=== PATIENT | female | born 1990 | race African-American/Black ===

== ENCOUNTER → 2017-12-27 | Outpatient (REF) | payer OTHER, SELFPAY ==
[2017-12-27 17:56] LABS: BASO # 0.1 10^3/uL (0.0-0.2); EOS # 0.3 10^3/uL (0.0-0.50); EOS % 3.5 % (0.0-3.0); HEMATOCRIT 39.8 % (36.0-47.0); HEMOGLOBIN 13.8 g/dl (12.0-15.5); IMMATURE GRANULOCYTE % 0.3 % (0-3.0); LYMPH # 2.1 10^3/uL (1.5-6.5); LYMPH % 26.9 % (24.0-44.0); MEAN CORPUSCULAR HEMOGLOBIN 29.7 pg (27.0-33.0); MEAN CORPUSCULAR HGB CONC 34.7 g/dl (32.0-36.5); MEAN CORPUSCULAR VOLUME 85.8 fl (80.0-96.0); MONO # 0.6 10^3/uL (0.0-0.8); MONO % 7.8 % (0.0-5.0); NEUTROPHILS # 4.8 10^3/uL (1.8-7.7); NEUTROPHILS % 60.5 % (36.0-66.0); PLATELET COUNT, AUTOMATED 369 10^3/uL (150-450); RED BLOOD COUNT 4.64 10^6/uL (4.00-5.40); RED CELL DISTRIBUTION WIDTH 12.9 % (11.5-14.5); WHITE BLOOD COUNT 7.9 10^3/uL (4.0-10.0)
[2017-12-27 18:39] LABS: ALBUMIN 3.7 GM/DL (3.2-5.2); ALBUMIN/GLOBULIN RATIO 1.03 (1.00-1.93); ALKALINE PHOSPHATASE 100 U/L (45-117); ALT/SGPT 25 U/L (12-78); ANION GAP 7 MEQ/L (8-16); AST/SGOT 14 U/L (7-37); BILIRUBIN,TOTAL 0.2 MG/DL (0.2-1.0); BLOOD UREA NITROGEN 7 MG/DL (7-18); CALCIUM LEVEL 9.2 MG/DL (8.5-10.1); CARBON DIOXIDE LEVEL 23 MEQ/L (21-32); CHLORIDE LEVEL 107 MEQ/L (98-107); CHOLESTEROL LEVEL 188 MG/DL (<200); CREATININE FOR GFR 0.83 MG/DL (0.55-1.30); GLOMERULAR FILTRATION RATE > 60.0 (>60); GLUCOSE, FASTING 363 MG/DL (70-100); HDL CHOLESTEROL 50 MG/DL (>40); LDL CHOLESTEROL 123.4 MG/DL (<100); NON-HDL-C 138 MG/DL; POTASSIUM SERUM 4.4 MEQ/L (3.5-5.1); SODIUM LEVEL 137 MEQ/L (136-145); THYROID STIMULATING HORMONE 0.544 uIU/ML (0.358-3.740); TOTAL PROTEIN 7.3 GM/DL (6.4-8.2); TRIGLYCERIDES LEVEL 73 MG/DL (<150)
[2017-12-27 19:40] LABS: CREATININE, URINE 79.9 MG/DL; MAU/CREAT RATIO 354.1 MCG/MG (0.0-30.0)
[2017-12-27 20:15] LABS: ESTIMATED AVERAGE GLUCOSE 283 MG/DL (60-110); HEMOGLOBIN A1c 11.5 %
[2017-12-28 12:08] LABS: HEPATITIS C VIRUS ABY INDEX 6.9 INDEX (<0.8)
[2017-12-31 00:07] LABS: HCV RNA NAA QUALITATIVE Negative (Negative)
== END ==
LOC: M LAB REF 16:27
DX: E11.9 Type 2 diabetes mellitus without complications (principal)
CPT/HCPCS: 84443

== ENCOUNTER 2018-02-11 13:02 | Inpatient (IN) | payer MEDICAID, OTHER ==
[2018-02-11] MEDS: NICOTINE 21MG/24HR 1 EA TRANSDERMAL TD (09:00)
[2018-02-11 12:04] LABS: BASO # 0.1 10^3/uL (0.0-0.2); BASO % 0.8 % (0.0-1.0); EOS # 0.2 10^3/uL (0.0-0.50); EOS % 1.8 % (0.0-3.0); HEMATOCRIT 41.3 % (36.0-47.0); HEMOGLOBIN 13.9 g/dl (12.0-15.5); IMMATURE GRANULOCYTE % 0.1 % (0-3.0); LYMPH # 1.6 10^3/uL (1.5-6.5); LYMPH % 18.7 % (24.0-44.0); MEAN CORPUSCULAR HEMOGLOBIN 29.2 pg (27.0-33.0); MEAN CORPUSCULAR HGB CONC 33.7 g/dl (32.0-36.5); MEAN CORPUSCULAR VOLUME 86.8 fl (80.0-96.0); MONO # 0.7 10^3/uL (0.0-0.8); MONO % 8.5 % (0.0-5.0); NEUTROPHILS # 5.9 10^3/uL (1.8-7.7); NEUTROPHILS % 70.1 % (36.0-66.0); PLATELET COUNT, AUTOMATED 333 10^3/uL (150-450); RED BLOOD COUNT 4.76 10^6/uL (4.00-5.40); RED CELL DISTRIBUTION WIDTH 12.9 % (11.5-14.5); WHITE BLOOD COUNT 8.4 10^3/uL (4.0-10.0)
[2018-02-11] MEDS: ONDANSETRON 4MG/2ML VIAL (J2405) IV (12:05)
[2018-02-11 12:16] LABS: CONTROL LINE HCG INT CTR LINE PRESENT; HCG, SERUM QUALITATIVE NEGATIVE (NEGATIVE)
[2018-02-11 12:30] LABS: ACETAMINOPHEN LEVEL < 2.0 UG/ML (10.0-30.0); ALBUMIN 3.7 GM/DL (3.2-5.2); ALBUMIN/GLOBULIN RATIO 1.03 (1.00-1.93); ALKALINE PHOSPHATASE 86 U/L (45-117); ALT/SGPT 27 U/L (12-78); ANION GAP 11 MEQ/L (8-16); AST/SGOT 18 U/L (7-37); BILIRUBIN,DIRECT 0.1 MG/DL (0.0-0.2); BILIRUBIN,TOTAL 0.4 MG/DL (0.2-1.0); BLOOD UREA NITROGEN 12 MG/DL (7-18); CALCIUM LEVEL 8.8 MG/DL (8.5-10.1); CARBON DIOXIDE LEVEL 21 MEQ/L (21-32); CHLORIDE LEVEL 106 MEQ/L (98-107); CPK CREATINE PHOSPHOKINASE 76 U/L (26-192); ETHYL ALCOHOL (ETHANOL) < 0.003 % (0.000-0.010); GLOMERULAR FILTRATION RATE > 60.0 (>60); GLUCOSE, FASTING 359 MG/DL (70-100); POTASSIUM SERUM 4.1 MEQ/L (3.5-5.1); SALICYLATE LEVEL 2.7 MG/DL (5.0-30.0); SODIUM LEVEL 138 MEQ/L (136-145); TOTAL PROTEIN 7.3 GM/DL (6.4-8.2)
[2018-02-11 12:30] LABS: BEDSIDE GLUCOSE 367 MG/DL (70-105)
[2018-02-11] MEDS: CHARCOAL ACTIVATED LIQUID 25 GM/120 ML BTL PO (13:00)
[~2018-02-11 13:02] MED LIST: ONDANSETRON 4MG/2ML VIAL (J2405) As Ordered
[2018-02-11 13:20] LABS: AMPHETAMINES LEVEL URINE NEGATIVE (NEGATIVE); BARBITURATES URINE NEGATIVE (NEGATIVE); BENZODIAZEPINES URINE NEGATIVE (NEGATIVE); CANNABINOIDS URINE POSITIVE (NEGATIVE); COCAINE METABOLITE URINE POSITIVE (NEGATIVE); METHADONE URINE NEGATIVE (NEGATIVE); OPIATES URINE NEGATIVE (NEGATIVE); PHENCYCLIDINE URINE NEGATIVE (NEGATIVE)
[2018-02-11] MEDS ORDERED: ACETAMINOPHEN TAB 650MG DOSE (2X325MG) PO (19:15)
[2018-02-11] MEDS ORDERED: MOM 30ML SUSPENSION UDC PO (19:15)
[2018-02-11] MEDS ORDERED: MAALOX 30 ML SUSP *UDC PO (19:15)
[2018-02-12] MEDS: NICOTINE 21MG/24HR 1 EA TRANSDERMAL TD (10:09)
[2018-02-13] MEDS: LISINOPRIL 10 MG TAB PO ×2 (08:12→10:35)
[2018-02-13] MEDS: FLUoxetine 20 MG CAP PO (08:12)
[2018-02-13] MEDS: NICOTINE 21MG/24HR 1 EA TRANSDERMAL TD (08:13)
[2018-02-13] MEDS: metFORMIN (GLUCOPHAGE) 1000 MG TABLET PO ×2 (10:35→21:00)
[2018-02-13 11:43] LABS: HEMATOCRIT 40.6 % (36.0-47.0); HEMOGLOBIN 13.8 g/dl (12.0-15.5); MEAN CORPUSCULAR HEMOGLOBIN 29.4 pg (27.0-33.0); MEAN CORPUSCULAR VOLUME 86.4 fl (80.0-96.0); PLATELET COUNT, AUTOMATED 344 10^3/uL (150-450); RED CELL DISTRIBUTION WIDTH 12.8 % (11.5-14.5); WHITE BLOOD COUNT 9.4 10^3/uL (4.0-10.0)
[2018-02-13] MEDS: glyBURIDE 2.5 MG TAB PO (11:54)
[2018-02-13 12:05] LABS: ALBUMIN 3.5 GM/DL (3.2-5.2); ALBUMIN/GLOBULIN RATIO 0.95 (1.00-1.93); ALKALINE PHOSPHATASE 84 U/L (45-117); ALT/SGPT 23 U/L (12-78); ANION GAP 10 MEQ/L (8-16); AST/SGOT 11 U/L (7-37); BILIRUBIN,TOTAL 0.2 MG/DL (0.2-1.0); BLOOD UREA NITROGEN 11 MG/DL (7-18); CALCIUM LEVEL 8.8 MG/DL (8.5-10.1); CARBON DIOXIDE LEVEL 22 MEQ/L (21-32); CHLORIDE LEVEL 106 MEQ/L (98-107); CREATININE FOR GFR 1.07 MG/DL (0.55-1.30); GLOMERULAR FILTRATION RATE > 60.0 (>60); GLUCOSE, FASTING 324 MG/DL (70-100); POTASSIUM SERUM 4.3 MEQ/L (3.5-5.1); SODIUM LEVEL 138 MEQ/L (136-145); TOTAL PROTEIN 7.2 GM/DL (6.4-8.2)
[2018-02-13] MEDS: traZODone 50 MG TAB PO (20:19)
[2018-02-13 20:24] LABS: BEDSIDE GLUCOSE 279 MG/DL (70-105)
[2018-02-14 06:46] LABS: BEDSIDE GLUCOSE 305 MG/DL (70-105)
[2018-02-14] MEDS: NICOTINE 21MG/24HR 1 EA TRANSDERMAL TD (09:00)
[2018-02-14] MEDS: metFORMIN (GLUCOPHAGE) 1000 MG TABLET PO (10:04)
[2018-02-14] MEDS: LISINOPRIL 10 MG TAB PO (10:04)
[2018-02-14] MEDS: FLUoxetine 20 MG CAP PO (10:04)
[2018-02-14] MEDS: glyBURIDE 2.5 MG TAB PO (10:05)
== END 2018-02-14 10:15 | disposition home or self-care (01) | DRG 885 ==
LOC: M ED 13:02 → M ED INP 19:03 → M PSY 21:35
DX: F33.2 Major depressive disorder, recurrent severe without psychotic features (principal); F40.10 Social phobia, unspecified; Z91.5 Personal history of self-harm; I10 Essential (primary) hypertension; Z79.84 Long term (current) use of oral hypoglycemic drugs; E11.9 Type 2 diabetes mellitus without complications; F17.210 Nicotine dependence, cigarettes, uncomplicated; A60.09 Herpesviral infection of other urogenital tract; Z79.899 Other long term (current) drug therapy

== ENCOUNTER 2018-06-06 16:46 | Emergency (ER) | payer MEDICAID, OTHER ==
[2018-06-06] MEDS: NAPROXEN 250 MG TAB PO (17:44)
[2018-06-06] MEDS: ACETAMINOPHEN 325 MG TAB PO (18:45)
== END 2018-06-06 18:55 | disposition home or self-care (01) ==
LOC: M ED 16:46
DX: S20.211A Contusion of right front wall of thorax, initial encounter (principal); S40.011A Contusion of right shoulder, initial encounter; Y04.0XXA Assault by unarmed brawl or fight, initial encounter; Y92.89 Other specified places as the place of occurrence of the external cause
CPT/HCPCS: 71046

== ENCOUNTER → 2019-02-28 | Outpatient (REF) | payer OTHER, MEDICAID ==
[~2019-02-28] MED LIST changes: +BACT800T5 PO; +FLUO20CA19 PO; +GLYB25TA PO; +IBUP1TAB7 PO; +INSUDET SC; +INSUH10VL SC; +INSUHUMDS SC; +LISI10TA4 PO; +METF10004 PO; -ONDANSETRON 4MG/2ML VIAL (J2405) As Ordered; +PARO20TA3; +PARO30TA PO; +PERC5TAB12 PO
[2019-02-28 15:08] LABS: BASO # 0.1 10^3/uL (0.0-0.2); BASO % 1.1 % (0.0-1.0); EOS # 0.1 10^3/uL (0.0-0.50); EOS % 2.2 % (0.0-3.0); HEMATOCRIT 41.6 % (36.0-47.0); HEMOGLOBIN 14.1 g/dl (12.0-15.5); LYMPH # 2.7 10^3/uL (1.5-6.5); LYMPH % 43.8 % (24.0-44.0); MEAN CORPUSCULAR HEMOGLOBIN 30.1 pg (27.0-33.0); MEAN CORPUSCULAR HGB CONC 33.9 g/dl (32.0-36.5); MEAN CORPUSCULAR VOLUME 88.7 fl (80.0-96.0); MONO # 0.7 10^3/uL (0.0-0.8); MONO % 10.7 % (0.0-5.0); NEUTROPHILS # 2.6 10^3/uL (1.8-7.7); NEUTROPHILS % 41.9 % (36.0-66.0); PLATELET COUNT, AUTOMATED 297 10^3/uL (150-450); RED BLOOD COUNT 4.69 10^6/uL (4.00-5.40); WHITE BLOOD COUNT 6.3 10^3/uL (4.0-10.0)
[2019-02-28 15:40] LABS: HEMOGLOBIN A1c 11.6 %
[2019-02-28 15:56] LABS: ALBUMIN 3.6 GM/DL (3.2-5.2); ALT/SGPT 24 U/L (12-78); BILIRUBIN,TOTAL 0.4 MG/DL (0.2-1.0); BLOOD UREA NITROGEN 11 MG/DL (7-18); CALCIUM LEVEL 9.3 MG/DL (8.5-10.1); CARBON DIOXIDE LEVEL 24 MEQ/L (21-32); CHLORIDE LEVEL 108 MEQ/L (98-107); CHOLESTEROL LEVEL 212 MG/DL (<200); CHOLESTEROL RISK RATIO 3.593 (<5); CREATININE FOR GFR 0.73 MG/DL (0.55-1.30); FREE T4 1.13 NG/DL (0.76-1.46); GLOMERULAR FILTRATION RATE > 60.0 (>60); GLUCOSE, FASTING 252 MG/DL (70-100); HDL CHOLESTEROL 59 MG/DL (>40); LDL CHOLESTEROL 139 MG/DL (<100); NON-HDL-C 153 MG/DL; POTASSIUM SERUM 4.6 MEQ/L (3.5-5.1); SODIUM LEVEL 140 MEQ/L (136-145); THYROID STIMULATING HORMONE 0.644 uIU/ML (0.358-3.740); TOTAL 25(OH) VITAMIN D 22.7 NG/ML (30.0-100.0); TOTAL PROTEIN 7.2 GM/DL (6.4-8.2); TRIGLYCERIDES LEVEL 68 MG/DL (<150)
[2019-03-02 00:07] LABS: Lyme Disease IgG/IgM Antibodie <0.91 ISR (0.00-0.90); Lyme Disease IgM Ab Quantitati <0.80 index (0.00-0.79)
== END ==
LOC: M LAB REF 13:31
PROVIDERS: ATTEND Family Medicine
DX: Z13.228 Encounter for screening for other metabolic disorders (principal); E11.9 Type 2 diabetes mellitus without complications

== ENCOUNTER → 2019-02-28 | Outpatient (CLI) | payer OTHER, MEDICAID | LOC: M LAB 13:01 | PROVIDERS: ATTEND Family Medicine | DX: E11.9 Type 2 diabetes mellitus without complications (principal); Z13.228 Encounter for screening for other metabolic disorders ==

== ENCOUNTER → 2019-10-03 | Outpatient (REF) | payer OTHER, MEDICAID ==
[~2019-10-03] MED LIST changes: -FLUO20CA19 PO; +FLUO20CA22 PO
[2019-10-03 17:13] LABS: BASO # 0.1 10^3/uL (0.0-0.2); BASO % 0.8 % (0.0-1.0); EOS # 0.2 10^3/uL (0.0-0.5); HEMATOCRIT 39.4 % (36.0-47.0); HEMOGLOBIN 13.4 g/dl (12.0-15.5); LYMPH # 2.2 10^3/uL (1.5-5.0); LYMPH % 34.1 % (24.0-44.0); MEAN CORPUSCULAR HEMOGLOBIN 29.7 pg (27.0-33.0); MEAN CORPUSCULAR VOLUME 87.4 fl (80.0-96.0); MONO # 0.6 10^3/uL (0.0-0.8); MONO % 9.8 % (0.0-5.0); NEUTROPHILS # 3.4 10^3/uL (1.5-8.5); PLATELET COUNT, AUTOMATED 360 10^3/uL (150-450); RED BLOOD COUNT 4.51 10^6/uL (4.00-5.40); WHITE BLOOD COUNT 6.4 10^3/uL (4.0-10.0)
[2019-10-03 17:33] LABS: HEMOGLOBIN A1c 12.1 %
[2019-10-03 18:08] LABS: ALBUMIN 3.3 GM/DL (3.2-5.2); ALT/SGPT 22 U/L (12-78); BILIRUBIN,TOTAL 0.3 MG/DL (0.2-1.0); BLOOD UREA NITROGEN 11 MG/DL (7-18); CALCIUM LEVEL 8.9 MG/DL (8.5-10.1); CARBON DIOXIDE LEVEL 28 MEQ/L (21-32); CHLORIDE LEVEL 105 MEQ/L (98-107); CHOLESTEROL LEVEL 228 MG/DL (<200); CHOLESTEROL RISK RATIO 4.145 (<5); CREATININE FOR GFR 0.86 MG/DL (0.55-1.30); GLOMERULAR FILTRATION RATE > 60.0 (>60); GLUCOSE, FASTING 307 MG/DL (70-100); HDL CHOLESTEROL 55 MG/DL (>40); LDL CHOLESTEROL 150 MG/DL (<100); NON-HDL-C 173 MG/DL; SODIUM LEVEL 137 MEQ/L (136-145); THYROID STIMULATING HORMONE 0.894 uIU/ML (0.358-3.740); TOTAL PROTEIN 6.5 GM/DL (6.4-8.2); TRIGLYCERIDES LEVEL 117 MG/DL (<150)
== END ==
LOC: M LAB REF 16:39
PROVIDERS: ATTEND Family Medicine
DX: E11.9 Type 2 diabetes mellitus without complications (principal)

== ENCOUNTER → 2019-10-10 | Outpatient (REF) | payer OTHER, MEDICAID | LOC: M LAB REF 17:58 | PROVIDERS: ATTEND Family Medicine | DX: E11.9 Type 2 diabetes mellitus without complications (principal) ==

== ENCOUNTER 2020-06-03 18:11 | Emergency (ER) | payer MEDICAID, OTHER ==
[~2020-06-03] VITALS: Ht 170.2 cm; Wt 95.1 kg
[~2020-06-03 18:11] MED LIST changes: -PARO30TA PO; +PARO30TA65 PO
[2020-06-03 19:19] VITALS: BP 152/98
[2020-06-03] MEDS ORDERED: NAPROXEN 250 MG TAB PO ONE (19:45)
[2020-06-03] MEDS ORDERED: MAGIC MOUTHWASH SUSPENSION BTL SS STA (19:45)
[2020-06-03] MEDS ORDERED: NAPR-837 PO (20:00)
[2020-06-03] MEDS ORDERED: MAGICMW SSP (20:00)
== END 2020-06-03 20:09 | disposition home or self-care (01) ==
LOC: M ED 18:11
DX: R07.0 Pain in throat (principal); E11.9 Type 2 diabetes mellitus without complications

== ENCOUNTER 2020-06-24 12:39 | Emergency (ER) | payer OTHER ==
[~2020-06-24] VITALS: Ht 172.7 cm; Wt 93.5 kg
[~2020-06-24 12:39] MED LIST changes: +MAGICMW SSP; +NAPR-837 PO
--- NOTE | 2020-06-24 14:25 | REP ---
INDICATION: chest tightness. COMPARISON: June 06, 2018.. TECHNIQUE: Portable AP radiograph. FINDINGS: The lungs are well inflated and clear. The pleural angles are sharp. Heart size is normal. Pulmonary vasculature is not increased. No bony abnormality is seen. IMPRESSION: Negative portable chest x-ray. <Electronically signed by Heri Muñoz > 06/24/20 [id number]
[2020-06-24 15:33] LABS: BASO # 0.1 10^3/uL (0.0-0.2); BASO % 0.8 % (0.0-1.0); EOS # 0.2 10^3/uL (0.0-0.5); HEMATOCRIT 38.9 % (36.0-47.0); LYMPH # 2.8 10^3/uL (1.5-5.0); LYMPH % 37.2 % (24.0-44.0); MEAN CORPUSCULAR HGB CONC 33.4 g/dl (32.0-36.5); MEAN CORPUSCULAR VOLUME 86.6 fl (80.0-96.0); MONO # 0.7 10^3/uL (0.0-0.8); MONO % 9.4 % (0.0-5.0); NEUTROPHILS # 3.7 10^3/uL (1.5-8.5); NEUTROPHILS % 49.3 % (36.0-66.0); PLATELET COUNT, AUTOMATED 305 10^3/uL (150-450); RED BLOOD COUNT 4.49 10^6/uL (4.00-5.40); WHITE BLOOD COUNT 7.4 10^3/uL (4.0-10.0)
[2020-06-24 16:00] VITALS: BP 149/79
--- NOTE | 2020-06-24 16:52 | ECGEPIP ---
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
--- NOTE | 2020-06-28 08:58 | ED PDOC ---
Post-Departure Follow-Up Called patient to update on negative COVID-19 test. All questions addressed. NIC VIRGEN TAYLOR E. PA-C Jun 28, 2020 08:58
== END 2020-06-24 16:21 | disposition home or self-care (01) ==
LOC: M ED 12:39
DX: J00 Acute nasopharyngitis [common cold] (principal); B34.9 Viral infection, unspecified; E11.9 Type 2 diabetes mellitus without complications; F41.9 Anxiety disorder, unspecified; F17.210 Nicotine dependence, cigarettes, uncomplicated
CPT/HCPCS: 36415; 71045; 80047; 84702; 85025; 87880; 93005; 99284; U0003

== ENCOUNTER → 2020-11-25 | Outpatient (CLI) | payer MEDICAID ==
[~2020-11-25] MED LIST changes: +GLYB2.5T7 PO; -GLYB25TA PO; +LISI10TA22 PO; -LISI10TA4 PO
== END ==
LOC: M OUTALCOH 14:49
PROVIDERS: ATTEND Psychiatry & Neurology Psychiatry
DX: Z13.39 Encounter for screening examination for other mental health and behavioral disorders (principal)

== ENCOUNTER → 2020-12-12 | Outpatient (RCR) | payer MEDICAID | LOC: M OUTALCOH 12-01 13:55 | PROVIDERS: ATTEND Psychiatry & Neurology Psychiatry | DX: F12.20 Cannabis dependence, uncomplicated (principal); F15.20 Other stimulant dependence, uncomplicated; F17.200 Nicotine dependence, unspecified, uncomplicated ==

== ENCOUNTER 2021-01-09 08:45 | Outpatient (RCR) | payer MEDICAID | END 2021-01-12 | LOC: M OUTALCOH 08:45 | PROVIDERS: ATTEND Psychiatry & Neurology Psychiatry | DX: F12.20 Cannabis dependence, uncomplicated (principal); F15.20 Other stimulant dependence, uncomplicated; F17.200 Nicotine dependence, unspecified, uncomplicated ==

== ENCOUNTER → 2021-02-11 | Outpatient (RCR) | payer MEDICAID | LOC: M OUTALCOH 01-14 14:30 | PROVIDERS: ATTEND Psychiatry & Neurology Psychiatry | DX: F12.20 Cannabis dependence, uncomplicated (principal); F15.20 Other stimulant dependence, uncomplicated; F17.200 Nicotine dependence, unspecified, uncomplicated ==

== ENCOUNTER 2021-03-13 13:10 | Outpatient (RCR) | payer MEDICAID | END 2021-03-14 | LOC: M OUTALCOH 13:10 | PROVIDERS: ATTEND Psychiatry & Neurology Psychiatry | DX: F12.20 Cannabis dependence, uncomplicated (principal); F15.20 Other stimulant dependence, uncomplicated; F17.200 Nicotine dependence, unspecified, uncomplicated ==

== ENCOUNTER 2021-04-10 15:00 | Outpatient (RCR) | payer MEDICAID | END 2021-04-14 | LOC: M OUTALCOH 15:00 | PROVIDERS: ATTEND Psychiatry & Neurology Psychiatry | DX: F12.20 Cannabis dependence, uncomplicated (principal); F15.20 Other stimulant dependence, uncomplicated; F17.200 Nicotine dependence, unspecified, uncomplicated ==

== ENCOUNTER 2021-04-24 14:10 | Outpatient (RCR) | payer MEDICAID | END 2021-05-14 | LOC: M OUTALCOH 14:10 | PROVIDERS: ATTEND Psychiatry & Neurology Psychiatry | DX: F12.20 Cannabis dependence, uncomplicated (principal); F15.20 Other stimulant dependence, uncomplicated; F17.200 Nicotine dependence, unspecified, uncomplicated ==

== ENCOUNTER → 2021-07-22 | Outpatient (REF) | LOC: M LAB 10:48 | PROVIDERS: ATTEND Nurse Practitioner Adult Health | DX: Z02.1 Encounter for pre-employment examination (principal) ==

== ENCOUNTER 2021-10-17 21:58 | Emergency (ER) | payer MEDICAID ==
[~2021-10-17] VITALS: Ht 170.2 cm; Wt 95.5 kg
[2021-10-18 00:36] VITALS: BP 167/85
[2021-10-18] MEDS ORDERED: ACETAMINOPHEN 500 MG TAB PO ONE (00:45)
== END 2021-10-18 00:51 | disposition home or self-care (01) ==
LOC: M ED 21:58
DX: S62.326A Displaced fracture of shaft of fifth metacarpal bone, right hand, initial encounter for closed fracture (principal); Y04.0XXA Assault by unarmed brawl or fight, initial encounter; Y92.9 Unspecified place or not applicable; Y93.9 Activity, unspecified; Y99.9 Unspecified external cause status; F17.200 Nicotine dependence, unspecified, uncomplicated; F12.10 Cannabis abuse, uncomplicated

== ENCOUNTER 2022-02-06 17:34 | Emergency (ER) | payer MEDICAID ==
[~2022-02-06] VITALS: Ht 172.7 cm; Wt 99.4 kg
[2022-02-06] MEDS ORDERED: NS 1,000 ML IV ONE (18:45)
[2022-02-06] MEDS ORDERED: HumuLIN R (REGULAR) INSULIN (NovoLIN R) **100U/ML** PER UNIT IV ONE (18:45)
[2022-02-06 19:20] LABS: APPEARANCE, URINE HAZY (CLEAR); BACTERIA, URINE AUTO NEGATIVE (NEGATIVE); BILIRUBIN, URINE AUTO NEGATIVE (NEGATIVE); BLOOD, URINE BLOOD 2+ (NEGATIVE); COLOR, URINE STRAW (YELLOW); GLUCOSE, URINE (UA) AUTO 3+ mg/dL (NEGATIVE); KETONE, URINE AUTO NEGATIVE (NEGATIVE); LEUKOCYTE ESTERASE, URINE AUTO NEGATIVE (NEGATIVE); MUCUS, URINE SMALL (NEGATIVE); NITRITE, URINE AUTO NEGATIVE (NEGATIVE); PROTEIN, URINE AUTO 2+ mg/dL (NEGATIVE); RBC, URINE AUTO 1 /HPF (0-3); SPECIFIC GRAVITY URINE AUTO 1.027 (1.002-1.035); SQUAMOUS EPITHELIAL CELL UR AU 7 /HPF (0-6); UROBILINOGEN, URINE AUTO 0.2 mg/dL (0.0-2.0); WBC, URINE AUTO 2 /HPF (0-3)
[2022-02-06 19:28] LABS: VENOUS BASE EXCESS -1.6 (-2.0-2.0); VENOUS HCO3 25.1 MEQ/L (23.0-27.0); VENOUS O2 SATURATION 49.3 % (60.0-80.0); VENOUS PARTIAL PRESSURE CO2 50.2 mmHg (38.0-50.0); VENOUS PARTIAL PRESSURE O2 26.8 mmHg (30.0-50.0); VENOUS PH 7.317 UNITS (7.330-7.430); VENOUS STANDARD HCO3 22.1 MEQ/L; VENOUS TOTAL CO2 26.7 MEQ/L (24.0-28.0)
[2022-02-06 19:33] LABS: BASO # 0.1 10^3/uL (0.0-0.2); BASO % 0.9 % (0.0-1.0); EOS # 0.2 10^3/uL (0.0-0.5); EOS % 2.3 % (0.0-3.0); HEMATOCRIT 37.8 % (36.0-47.0); HEMOGLOBIN 12.8 g/dl (12.0-15.5); LYMPH # 2.3 10^3/uL (1.5-5.0); LYMPH % 30.9 % (24.0-44.0); MEAN CORPUSCULAR HEMOGLOBIN 29.4 pg (27.0-33.0); MEAN CORPUSCULAR HGB CONC 33.9 g/dl (32.0-36.5); MEAN CORPUSCULAR VOLUME 86.9 fl (80.0-96.0); MONO # 0.5 10^3/uL (0.0-0.8); MONO % 7.2 % (2.0-8.0); NEUTROPHILS # 4.4 10^3/uL (1.5-8.5); NEUTROPHILS % 58.4 % (36.0-66.0); PLATELET COUNT, AUTOMATED 340 10^3/uL (150-450); RED BLOOD COUNT 4.35 10^6/uL (4.00-5.40); WHITE BLOOD COUNT 7.5 10^3/uL (4.0-10.0)
[2022-02-06 19:57] LABS: HEMOGLOBIN A1c 12.9 %
[2022-02-06 19:57] LABS: CK-MB VALUE MASS 1.5 NG/ML (<3.6); MB/CK RELATIVE INDEX 1.55 (< OR =4)
[2022-02-06 19:58] LABS: ACETONE/KETONE 0.59 MG/DL (<2.81); ALBUMIN 2.9 GM/DL (3.2-5.2); ALT/SGPT 21 U/L (12-78); BILIRUBIN,DIRECT < 0.1 MG/DL (0.0-0.2); BILIRUBIN,TOTAL < 0.1 MG/DL (0.2-1.0); LIPASE 262 U/L (73-393); TOTAL PROTEIN 6.2 GM/DL (6.4-8.2)
[2022-02-06 20:22] LABS: OSMOLALITY SERUM 295 MOSM/KG (275-295)
[2022-02-06 20:51] LABS: FREE THYROXINE INDEX 0.8 % (1.3-4.8); T UPTAKE 36 % (30-39); THYROXINE (T4) 2.3 UG/DL (4.5-12.0)
[2022-02-06] MEDS ORDERED: INSU100V13 SQ (21:23)
[2022-02-06] MEDS ORDERED: FIFT31MI2 SC (21:34)
[2022-02-06 22:09] VITALS: BP 134/98
== END 2022-02-06 22:10 | disposition home or self-care (01) ==
LOC: M ED 17:34
DX: E11.65 Type 2 diabetes mellitus with hyperglycemia (principal); H53.8 Other visual disturbances; F17.200 Nicotine dependence, unspecified, uncomplicated; Z79.4 Long term (current) use of insulin
CPT/HCPCS: 36600; 80047; 80076; 81001; 82010; 82550; 82553; 82803; 83036; 83605; 83690; 83930; 84436; 84443; 84479; 84702; 85025; 93005; 96360; 96361; 99284; J1815

== ENCOUNTER 2023-02-10 16:10 | Emergency (ER) | payer MEDICAID, OTHER ==
[~2023-02-10] VITALS: Ht 170.2 cm; Wt 87.6 kg
[~2023-02-10 16:10] MED LIST changes: +FIFT31MI2 SC; +INSU100V13 SQ
[2023-02-10] MEDS ORDERED: NS 1,000 ML IV SCH (16:50)
[2023-02-10] MEDS ORDERED: KETOROLAC 30 MG/ML 1ML VIAL IV ONE (17:25)
[2023-02-10] MEDS ORDERED: INSULIN LISPRO (NovoLOG) PER UNIT SC SCH (17:30)
[2023-02-10 17:46] LABS: VENOUS HCO3 29.3 MMOL/L (23.0-27.0); VENOUS O2 SATURATION 56.1 % (60.0-80.0); VENOUS PARTIAL PRESSURE CO2 52.2 mmHg (38.0-50.0); VENOUS PH 7.367 UNITS (7.330-7.430); VENOUS STANDARD HCO3 26.2 MMOL/L; VENOUS TOTAL CO2 30.9 MMOL/L (24.0-28.0)
[2023-02-10 17:48] LABS: BASO # 0.1 10^3/uL (0.0-0.2); BASO % 0.4 % (0.0-1.0); EOS % 0.2 % (0.0-3.0); HEMATOCRIT 33.5 % (36.0-47.0); HEMOGLOBIN 11.6 g/dl (12.0-15.5); LYMPH # 1.5 10^3/uL (1.5-5.0); LYMPH % 12.2 % (24.0-44.0); MEAN CORPUSCULAR HEMOGLOBIN 29.1 pg (27.0-33.0); MEAN CORPUSCULAR HGB CONC 34.6 g/dl (32.0-36.5); MONO % 8.4 % (2.0-8.0); NEUTROPHILS # 9.3 10^3/uL (1.5-8.5); NEUTROPHILS % 77.7 % (36.0-66.0); PLATELET COUNT, AUTOMATED 467 10^3/uL (150-450); RED BLOOD COUNT 3.99 10^6/uL (4.00-5.40)
[2023-02-10 18:04] LABS: LIPASE 46 U/L (12-53)
[2023-02-10 18:06] LABS: ALKALINE PHOSPHATASE 147 U/L (46-116); ALT/SGPT 14 U/L (7.0-40); AST/SGOT 11 U/L (<34); BILIRUBIN,DIRECT < 0.1 MG/DL (<0.4); BILIRUBIN,TOTAL 0.3 MG/DL (0.3-1.2); BLOOD UREA NITROGEN 9 MG/DL (9-23); CALCIUM LEVEL 9.3 MG/DL (8.5-10.1); CARBON DIOXIDE LEVEL 28 MMOL/L (20-31); CHLORIDE LEVEL 94 MMOL/L (98-107); CREATININE FOR GFR 0.96 MG/DL (0.55-1.30); GLOMERULAR FILTRATION RATE > 60.0 (>60); GLUCOSE, FASTING 390 MG/DL (60-100); POTASSIUM SERUM 3.5 MMOL/L (3.5-5.1); SODIUM LEVEL 132 MMOL/L (136-145); TOTAL PROTEIN 6.1 G/DL (5.7-8.2)
[2023-02-10 18:23] LABS: HCG, SERUM QUALITATIVE NEGATIVE (NEGATIVE)
[2023-02-10] MEDS ORDERED: CEPH500C PO (18:27)
[2023-02-10] MEDS ORDERED: METF500T13 PO (18:29)
[2023-02-10] MEDS ORDERED: CEFP200T PO (20:04)
[2023-02-10 20:30] VITALS: BP 129/68; TEMP 98.9; O2SAT 98
== END 2023-02-10 20:33 | disposition home or self-care (01) ==
LOC: M ED 16:10
DX: E11.8 Type 2 diabetes mellitus with unspecified complications (principal); L03.90 Cellulitis, unspecified; I10 Essential (primary) hypertension; E78.5 Hyperlipidemia, unspecified
CPT/HCPCS: 74176; 80048; 80076; 81001; 82803; 83690; 84703; 85025; 87086; 96361; 96374; 99284; J1815; J1885

== ENCOUNTER 2023-02-17 17:47 | Emergency (ER) | payer OTHER ==
[~2023-02-17] VITALS: Ht 170.2 cm; Wt 89.4 kg
[~2023-02-17 17:47] MED LIST changes: +CEFP200T PO; +CEPH500C PO; +CLIC31MI6 SC; -FIFT31MI2 SC; +METF500T13 PO
[2023-02-17] MEDS ORDERED: NS 1,000 ML IV ONE (20:50)
[2023-02-17 21:04] LABS: BASO # 0.1 10^3/uL (0.0-0.2); BASO % 0.5 % (0.0-1.0); EOS # 0.1 10^3/uL (0.0-0.5); EOS % 0.9 % (0.0-3.0); HEMATOCRIT 32.4 % (36.0-47.0); HEMOGLOBIN 10.3 g/dl (12.0-15.5); LYMPH # 2.6 10^3/uL (1.5-5.0); LYMPH % 22.3 % (24.0-44.0); MEAN CORPUSCULAR HEMOGLOBIN 27.8 pg (27.0-33.0); MEAN CORPUSCULAR HGB CONC 31.8 g/dl (32.0-36.5); MEAN CORPUSCULAR VOLUME 87.6 fl (80.0-96.0); MONO % 8.3 % (2.0-8.0); NEUTROPHILS # 7.7 10^3/uL (1.5-8.5); NEUTROPHILS % 66.4 % (36.0-66.0); PLATELET COUNT, AUTOMATED 639 10^3/uL (150-450); WHITE BLOOD COUNT 11.6 10^3/uL (4.0-10.0)
[2023-02-17 21:42] LABS: BLOOD UREA NITROGEN 9 MG/DL (9-23); CALCIUM LEVEL 8.4 MG/DL (8.5-10.1); CARBON DIOXIDE LEVEL 31 MMOL/L (20-31); CHLORIDE LEVEL 101 MMOL/L (98-107); CREATININE FOR GFR 0.71 MG/DL (0.55-1.30); GLOMERULAR FILTRATION RATE > 60.0 (>60); GLUCOSE, FASTING 343 MG/DL (60-100); POTASSIUM SERUM 3.7 MMOL/L (3.5-5.1); SODIUM LEVEL 136 MMOL/L (136-145)
[2023-02-17 21:44] LABS: FREE T4 0.99 NG/DL (0.89-1.76)
[2023-02-17 21:45] LABS: THYROID STIMULATING HORMONE 0.851 uIU/ML (0.55-4.78)
[2023-02-17 23:36] VITALS: BP 155/91; TEMP 98.6; O2SAT 98
== END 2023-02-18 00:16 | disposition home or self-care (01) ==
LOC: M ED 17:47
DX: E11.65 Type 2 diabetes mellitus with hyperglycemia (principal); R60.9 Edema, unspecified; Z79.899 Other long term (current) drug therapy

== ENCOUNTER 2024-11-04 19:58 | Emergency (ER) | payer OTHER ==
[~2024-11-04] VITALS: Ht 170.2 cm; Wt 96.0 kg
[~2024-11-04 19:58] MED LIST changes: -CLIC31MI6 SC; +FLUO-365 PO; -FLUO20CA22 PO; +PEN-371 SC
[2024-11-04 21:57] LABS: HEMATOCRIT 35.1 % (36.0-47.0); MEAN CORPUSCULAR HEMOGLOBIN 29.3 pg (27.0-33.0); MEAN CORPUSCULAR HGB CONC 34.2 g/dl (32.0-36.5); MEAN CORPUSCULAR VOLUME 85.6 fl (80.0-96.0); PLATELET COUNT, AUTOMATED 414 10^3/uL (150-450); WHITE BLOOD COUNT 15.1 10^3/uL (4.0-10.0)
[2024-11-04 22:06] LABS: KETONE, URINE AUTO RFX NEGATIVE (NEGATIVE); LEUKOCYTE ESTERASE UR AUTO RFX NEGATIVE (NEGATIVE); MUCUS, URINE RFX SMALL (NEGATIVE); NITRITE, URINE AUTO RFX NEGATIVE (NEGATIVE); RBC, URINE AUTO RFX 2 /HPF (0-3); SQUAM EPITHELIAL CELL UR AURFX 2 /HPF (0-6); WBC, URINE AUTO RFX 5 /HPF (0-3)
[2024-11-04 22:21] VITALS: BP 141/89; TEMP 99.1; O2SAT 100
[2024-11-04 22:36] LABS: BLOOD UREA NITROGEN 16 MG/DL (9-23); CALCIUM LEVEL 9.2 MG/DL (8.5-10.1); CARBON DIOXIDE LEVEL 26 MMOL/L (20-31); CHLORIDE LEVEL 106 MMOL/L (98-107); CREATININE FOR GFR 1.09 MG/DL (0.55-1.30); GLOMERULAR FILTRATION RATE > 60.0 (>60); GLUCOSE, FASTING 372 MG/DL (60-100); POTASSIUM SERUM 4.6 MMOL/L (3.5-5.1); SODIUM LEVEL 138 MMOL/L (136-145)
[2024-11-04] MEDS: ACETAMINOPHEN 500 MG TAB PO ONE (23:30)
[2024-11-04] MEDS ORDERED: CEFD300C PO (23:33)
== END 2024-11-04 23:41 | disposition home or self-care (01) ==
LOC: M ED 19:58
DX: S93.402A Sprain of unspecified ligament of left ankle, initial encounter (principal); S93.602A Unspecified sprain of left foot, initial encounter; W19.XXXA Unspecified fall, initial encounter; N39.0 Urinary tract infection, site not specified; E10.65 Type 1 diabetes mellitus with hyperglycemia; F17.200 Nicotine dependence, unspecified, uncomplicated; Y92.009 Unspecified place in unspecified non-institutional (private) residence as the place of occurrence of the external cause; Y93.89 Activity, other specified; Y99.9 Unspecified external cause status; Z79.2 Long term (current) use of antibiotics

== ENCOUNTER 2025-04-01 16:48 | Emergency (ER) | payer OTHER ==
[~2025-04-01] VITALS: Ht 170.2 cm; Wt 97.9 kg
[~2025-04-01 16:48] MED LIST changes: +CEFD300C PO
[2025-04-01 18:39] VITALS: BP 188/94; TEMP 97.5; O2SAT 98
[2025-04-01] MEDS ORDERED: ACET1TAB55 PO (19:51)
[2025-04-01] MEDS ORDERED: IBUP-1022 PO (19:51)
== END 2025-04-01 19:50 | disposition home or self-care (01) ==
LOC: M ED 17:41
DX: S92.415A Nondisplaced fracture of proximal phalanx of left great toe, initial encounter for closed fracture (principal); W22.09XA Striking against other stationary object, initial encounter; Y92.9 Unspecified place or not applicable; Y93.9 Activity, unspecified; Y99.9 Unspecified external cause status; E11.9 Type 2 diabetes mellitus without complications; I10 Essential (primary) hypertension